=== PATIENT | female | born 1995 | race American Indian/Alaskan Native ===

== ENCOUNTER 2021-08-11 10:42 | Emergency (ER) | payer SELFPAY ==
[2021-08-11] MEDS ORDERED: FAMOTIDINE 20 MG TAB PO ONE (11:18)
[2021-08-11] MEDS ORDERED: ONDANSETRON 4 MG/2 ML INJ IV ONE (11:18)
--- NOTE | 2021-08-11 11:21 | Emergency Department Report ---
ED General Adult HPI - General Chief complaint: Pain General Stated complaint: NO PERIOD, CHEST PAIN, STOMACH PAIN PUI?: No Time Seen by Provider: 08/11/21 11:04 Source: patient Mode of arrival: Ambulatory Limitations: No Limitations - History of Present Illness Initial comments: 26-year-old female with a past medical history of lupus presents to the ER today with complaints of epigastric pain x2 weeks and not having a menstrual cycle x2 months. Patient states that she has taken 2 home tests and both have been negative. She states that she just moved here currently does not have an [employer] and therefore has not followed up with [employer] not having a menstrual cycle. She has not been on any control. She also complains of intermittent epigastric pain x2 weeks which she describes as sharp and throbbing and radiates up into her chest and into her back. She reports associated intermittent nausea and vomiting and she reports that she has not had a bowel movement since last week Monday. She states that she drank a detox tea on Monday which did help her have a bowel movement, but it made her epigastric pain worsened so she stopped. She has not tried anything else [id number] to help her constipation. She denies any UTI symptoms. She denies any fever or chills. She has not had any abdominal surgeries in the past. She denies any alcohol abuse, illicit drug use or NSAID abuse. MD Complaint: No period in 2 mths/Epigastric pain -: week(s), month(s) - Related Data Previous Rx's Medication Instructions Recorded Last Taken Type Acetaminophen/Codeine [Tylenol 1 tab PO Q6H PRN #12 tab 08/11/21 Unknown Rx /Codeine # 3 tab] Ondansetron [Zofran Odt] 4 mg PO Q8HR PRN #15 tab.rapdis 08/11/21 Unknown Rx Pantoprazole [Protonix] 40 mg PO QDAY #30 tablet 08/11/21 Unknown Rx Allergies Allergy/AdvReac Type Severity Reaction Status Date / Time Penicillins Allergy Unknown Verified 08/11/21 10:50 ED Review of Systems ROS: Stated complaint: NO PERIOD, CHEST PAIN, STOMACH PAIN Other details as noted in HPI Comment: All other systems reviewed and negative Constitutional: denies: chills, diaphoresis, fever, malaise, weakness Eyes: denies: eye pain, eye discharge, vision change ENT: denies: ear pain, throat pain, dental pain, hearing loss, epistaxis, congestion Respiratory: denies: cough, shortness of breath, SOB with exertion, SOB at rest, wheezing Cardiovascular: chest pain. denies: palpitations, dyspnea on exertion, orthopnea, edema, syncope, paroxysmal nocturnal dyspnea Gastrointestinal: abdominal pain, nausea, vomiting, constipation Genitourinary: abnormal menses. denies: urgency, dysuria, discharge Musculoskeletal: denies: back pain, joint swelling, arthralgia Skin: denies: rash, lesions, change in color, change in hair/nails, pruritus Neurological: denies: headache, weakness, paresthesias, confusion, abnormal gait, vertigo Psychiatric: denies: anxiety, depression, auditory hallucinations, visual hallucinations, homicidal thoughts, suicidal thoughts Hematological/Lymphatic: denies: easy bleeding, easy bruising, swollen glands ED Past Medical Hx - Past Medical History Previous Medical History?: Yes Additional medical history: lupus - Surgical History Past Surgical History?: No - Medications Home Medications: Home Medications Medication Instructions Recorded Confirmed Last Taken Type Acetaminophen/Codeine [Tylenol 1 tab PO Q6H PRN #12 tab 08/11/21 Unknown Rx /Codeine # 3 tab] Ondansetron [Zofran Odt] 4 mg PO Q8HR PRN #15 tab.rapdis 08/11/21 Unknown Rx Pantoprazole [Protonix] 40 mg PO QDAY #30 tablet 08/11/21 Unknown Rx ED Physical Exam - General Limitations: No Limitations - Head Head exam: Present: atraumatic, normocephalic, normal inspection - Eye Eye exam: Present: normal appearance, PERRL, EOMI Pupils: Present: normal accommodation - ENT ENT exam: Present: normal exam, mucous membranes moist, TM's normal bilaterally - Neck Neck exam: Present: normal inspection, full ROM - Respiratory Respiratory exam: Present: normal lung sounds bilaterally. Absent: respiratory distress, wheezes, rales, rhonchi, stridor - Cardiovascular Cardiovascular Exam: Present: regular rate, normal rhythm, normal heart sounds - GI/Abdominal GI/Abdominal exam: Present: soft, tenderness (Epigastric ), guarding (epigastric ). Absent: distended, rebound, rigid - Neurological Exam Neurological exam: Present: alert, oriented X3, CN II-XII intact, normal gait - Psychiatric Psychiatric exam: Present: normal affect, normal mood - Skin Skin exam: Present: intact ED Course Vital Signs 08/11/21 08/11/21 10:51 16:25 Temperature 98.3 F 98.5 F Pulse Rate 70 75 Respiratory 16 16 Rate Blood Pressure 141/89 Blood Pressure 124/86 [Left] O2 Sat by Pulse 98 98 Oximetry ED Medical Decision Making - Lab Data Result diagrams: 08/11/21 11:18 08/11/21 11:50 - Radiology Data Radiology results: report reviewed Patient: SALIMA ZAMORA MR#: [id number] : 1995 Acct:[id number] Age/Sex: 26 / F ADM Date: 08/11/21 Loc: ED Attending Dr: Ordering Physician: JOSEPH JARVIS Date of Service: 08/11/21 Procedure(s): CT abdomen pelvis w con Accession Number(s): [id number] cc: JOSEPH JARVIS CT abdomen pelvis w con INDICATION / CLINICAL INFORMATION: epigastric pain OMNI 300 100 ML. TECHNIQUE: Axial CT images were obtained through the abdomen and pelvis after 100 cc of Omnipaque [address] scans at this location are performed using CT dose reduction for ALARA by means of automated exposure control. COMPARISON: None available. FINDINGS: LOWER CHEST: No significant abnormality LIVER: No significant abnormality GALLBLADDER/BILIARY TREE: Gallbladder is mildly distended with suggestion of wall thickening and/or pericholecystic fluid. No discrete gallstone is identified by CT. No biliary dilatation. PANCREAS: No significant abnormality SPLEEN: No significant abnormality ADRENALS: No significant abnormality KIDNEYS / URETER: No significant abnormality URINARY BLADDER: No significant abnormality REPRODUCTIVE ORGANS: No significant abnormality STOMACH / BOWEL: No significant abnormality. The appendix is normal in caliber. LYMPH NODES: No significant adenopathy. VASCULATURE: No significant abnormality. OTHER: No free air, free fluid, or focal fluid collection is identified. SKELETAL SYSTEM: No acute osseous findings. IMPRESSION: 1. Mildly distended gallbladder with suggestion of wall thickening and/or pericholecystic fluid. If there is clinical concern for acute cholecystitis, recommend further evaluation with right upper quadrant ultrasound. 2. Otherwise, no acute process of the abdomen or pelvis. Signer Name: Derek Stewart MD Signed: 08/11/2021 1:36 PM Workstation Name: [id number] Transcribed By: LARS Dictated By: DEREK STEWART MD Electronically Authenticated By: DEREK STEWART MD Signed Date/Time: 08/11/21 1336 DD/ TD/TT: Patient: SALIMA ZAMORA MR#: [id number] : 1995 Acct:[id number] Age/Sex: 26 / F ADM Date: 08/11/21 Loc: ED Attending Dr: Ordering Physician: JOSEPH JARVIS Date of Service: 08/11/21 Procedure(s): US abdomen limited Accession Number(s): [id number] cc: JOSEPH JARVIS LIMITED RUQ ABDOMINAL ULTRASOUND INDICATION: Epigastric pain/abnl Gallbladder on Ct. COMPARISON: No relevant prior imaging study available. FINDINGS: Pancreas: Visualized portions show no significant abnormality. Abdominal Aorta: No significant abnormality. IVC: No significant abnormality. Liver: The liver measures 17 cm in length. No significant abnormality. Normal hepatopedal blood flow in the main portal vein. Gallbladder: Multiple stones are seen in the gallbladder without wall thic kening. There is mild gallbladder distention. Sonographic Smith sign is reportedly negative.. Bile ducts: No significant abnormality. Common bile duct measures 3 mm. Right kidney: No significant abnormality visualized.. Free fluid: None. Additional Findings: None. IMPRESSION: 1. Multiple gallstones in the gallbladder. Sonographic Smith sign is negative. There are no additional findings to suggest acute cholecystitis.. Signer Name: Perry Granados MD Signed: 08/11/2021 3:32 PM Workstation Name: [id number] Transcribed By: JOSE MANUEL Dictated By: Perry Granados MD Electronically Authenticated By: Perry Granados MD Signed Date/Time: 08/11/21 1532 DD/ 153 TD/TT: Critical care attestation.: If time is entered above; I have spent that time in minutes in the direct care of this critically ill patient, excluding procedure time. ED Disposition Clinical Impression: Epigastric pain, Cholelithiasis, Amenorrhea Disposition: 01 HOME / SELF CARE / HOMELESS Is pt being admited?: No Does the pt Need Aspirin: No Condition: Stable Instructions: Secondary Amenorrhea, Cholelithiasis, [id number] Additional Instructions: Recommend following up with the [employer] listed on your discharge instructions for further evaluation of your missed periods. Your ultrasound shows that you have multiple gallstones in your gallbladder which could be contributing to your epigastric pain. At this time there is no signs of infection but I do recommend close follow-up with general surgery for discussing elective removal of your gallbladder. In the meantime I do recommend avoiding fried fatty greasy foods or these other things that can flareup your gallbladder pain. Return to the ER if you abdominal pain worsens with development of fever or chills. Prescriptions: Pantoprazole [Protonix] 40 mg PO QDAY #30 tablet Acetaminophen/Codeine [Tylenol /Codeine # 3 tab] 1 tab PO Q6H PRN #12 tab PRN Reason: Pain Ondansetron [Zofran Odt] 4 mg PO Q8HR PRN #15 tab.rapdis PRN Reason: nausea/vomiting Referrals: [facility] [Provider Group] - 3-5 Days [facility] [Provider Group] - 3-5 Days [facility] [Provider Group] - 3-5 Days DORIE MARTI DO [Staff Physician] - 3-5 Days Forms: Work/School Release Form(ED) Time of Disposition: 15:41 Print Language: MAORI
[2021-08-11] MEDS: SODIUM CHLORIDE 0.9% 1000 ML 1,000 ML IV ONE ×2 (11:30→11:53)
[2021-08-11 12:11] LABS: Basophils # (Auto) 0.1 K/mm3 (0.0-0.1); Basophils % (Auto) 1.3 % (0.0-1.8); Eosinophils # (Auto) 0.1 K/mm3 (0.0-0.4); Hematocrit 37.8 % (30.3-42.9); Hemoglobin 12.7 gm/dl (10.1-14.3); Lymphocytes # (Auto) 2.4 K/mm3 (1.2-5.4); Mean Corpuscular HGB Conc 34 % (30-34); Mean Corpuscular Volume 87 fl (79-97); Monocytes # (Auto) 0.7 K/mm3 (0.0-0.8); Monocytes % (Auto) 6.7 % (0.0-7.3); Platelet Count 425 K/mm3 (140-440); Red Blood Count 4.33 M/mm3 (3.65-5.03); Red Cell Distribution Width 13.7 % (13.2-15.2)
[2021-08-11 12:21] LABS: Alanine Aminotransferase 9 units/L (7-56); Albumin 4.4 g/dL (3.9-5); Blood Urea Nitrogen 12 mg/dL (7-17); Calcium 9.1 mg/dL (8.4-10.2); Hemolysis Index 1
[2021-08-11 12:26] LABS: BUN/Creatinine Ratio 17
--- NOTE | 2021-08-11 13:40 | Cat Scan Report ---
CT abdomen pelvis w con INDICATION / CLINICAL INFORMATION: epigastric pain OMNI 300 100 ML. TECHNIQUE: Axial CT images were obtained through the abdomen and pelvis after 100 cc of Omnipaque [address] scans at this location are performed using CT dose reduction for ALARA by means of automated exposure control. COMPARISON: None available. FINDINGS: LOWER CHEST: No significant abnormality LIVER: No significant abnormality GALLBLADDER/BILIARY TREE: Gallbladder is mildly distended with suggestion of wall thickening and/or p ericholecystic fluid. No discrete gallstone is identified by CT. No biliary dilatation. PANCREAS: No significant abnormality SPLEEN: No significant abnormality ADRENALS: No significant abnormality KIDNEYS / URETER: No significant abnormality URINARY BLADDER: No significant abnormality REPRODUCTIVE ORGANS: No significant abnormality STOMACH / BOWEL: No significant abnormality. The appendix is normal in caliber. LYMPH NODES: No significant adenopathy. VASCULATURE: No significant abnormality. OTHER: No free air, free fluid, or focal fluid collection is identified. SKELETAL SYSTEM: No acute osseous findings. IMPRESSION: 1. Mildly distended gallbladder with suggestion of wall thickening and/or pericholecystic fluid. If t here is clinical concern for acute cholecystitis, recommend further evaluation with right upper quadr ant ultrasound. 2. Otherwise, no acute process of the abdomen or pelvis. Signer Name: Octaviano Stewart MD Signed: 08/11/2021 1:36 PM Workstation Name: [id number]
[2021-08-11 15:28] LABS: Bilirubin,Urine NEG (Negative); Blood,Urine NEG (Negative); Color,Urine Yellow (Yellow); Mucus,Urine 3+ /HPF; Protein,Urine <15 mg/dL mg/dL (Negative); Urobilinogen,Urine < 2.0 mg/dL (<2.0)
--- NOTE | 2021-08-11 15:36 | Ultrasound Report ---
LIMITED RUQ ABDOMINAL ULTRASOUND INDICATION: Epigastric pain/abnl Gallbladder on Ct. COMPARISON: No relevant prior imaging study available. FINDINGS: Pancreas: Visualized portions show no significant abnormality. Abdominal Aorta: No significant abnormality. IVC: No significant abnormality. Liver: The liver measures 17 cm in length. No significant abnormality. Normal hepatopedal blood flow in the main portal vein. Gallbladder: Multiple stones are seen in the gallbladder without wall thickening. There is mild gallb ladder distention. Sonographic Smith sign is reportedly negative.. Bile ducts: No significant abnormality. Common bile duct measures 3 mm. Right kidney: No significant abnormality visualized.. Free fluid: None. Additional Findings: None. IMPRESSION: 1. Multiple gallstones in the gallbladder. Sonographic Smith sign is negative. There are no addition al findings to suggest acute cholecystitis.. Signer Name: Perry Granados MD Signed: 08/11/2021 3:32 PM Workstation Name: [id number]
[2021-08-11 16:28] VITALS: BP 141/89
== END 2021-08-11 16:29 | disposition home or self-care (01) ==
LOC: ED 10:42
DX: K80.20 Calculus of gallbladder without cholecystitis without obstruction (principal); N91.2 Amenorrhea, unspecified; M32.9 Systemic lupus erythematosus, unspecified; Z88.0 Allergy status to penicillin
CPT/HCPCS: 36415; 74177; 76705; 80053; 81001; 83690; 84702; 85025; 96374; 99284; J2405; Q9967; J7030